=== PATIENT | female | born 1950 | race Asian ===

== ENCOUNTER 2018-11-30 14:59 | Emergency (ER) | payer OTHER ==
[~2018-11-30] VITALS: Ht 162.6 cm; Wt 124.3 kg
[2018-11-30 14:59] VITALS: BP_SYST 149
--- NOTE | 2018-11-30 15:00 | NUR ---
BROUGHT IN BY [facility], PLACED IN BED #4 AND TRIAGED. REPORT GIVEN TO KATHY
--- NOTE | 2018-11-30 15:15 | NUR ---
Patient presented to ER with C/O chest pain with SOB, resolved by arrival to ER. atient A&Ox4, afebrile, denies N/V/D, denies pain at present time. Patient brought to ER by BLS from [facility], given x1 nitro en route. Patient has Hx brain injury, HTN, GERD, Hyperlipidemia
[2018-11-30 15:51] LABS: BASOPHILS # (AUTO) 0.1 K/uL (0.0-0.2); BASOPHILS % (AUTO) 0.7 % (0.0-2.0); EOSINOPHILS # (AUTO) 0.3 K/uL (0.0-0.4); EOSINOPHILS % (AUTO) 3.2 % (0.0-4.0); HEMATOCRIT 43.9 % (36-48); HEMOGLOBIN 14.2 g/dL (12.0-16.0); LYMPHOCYTES # (AUTO) 1.4 K/uL (1.0-5.5); LYMPHOCYTES % (AUTO) 14.3 % (20.5-51.5); MEAN CORPUSCULAR HEMOGLOBIN 29 pg (27-31); MEAN CORPUSCULAR HGB CONC 32 % (32-36); MEAN CORPUSCULAR VOLUME 88 fL (79.0-98.0); MONOCYTES # (AUTO) 0.9 K/uL (0.0-1.0); MONOCYTES % (AUTO) 9.6 % (1.7-9.3); NEUTROPHILS # (AUTO) 7.2 K/uL (1.8-7.7); NEUTROPHILS % (AUTO) 72.2 % (40.0-70.0); PLATELET COUNT (AUTO) 302 K/uL (130-430); RED BLOOD CELL COUNT(AUTO) 4.99 MIL/uL (4.2-6.2); RED CELL DISTRIBUTION WIDTH 14.4 % (9.0-15.0); WHITE BLOOD COUNT (AUTO) 9.9 K/uL (4.8-10.8)
[2018-11-30 16:03] LABS: CREATININE 0.7 mg/dL (0.55-1.30); POTASSIUM 3.8 mmol/L (3.5-5.1)
[2018-11-30 16:15] LABS: ALBUMIN 3.2 g/dL (3.4-4.8); TOTAL BILIRUBIN 0.2 mg/dL (0.0-1.0)
--- NOTE | 2018-11-30 18:27 | NUR ---
ER Dr. Metcalf at bedside examining patient.
--- NOTE | 2018-11-30 19:12 | NUR ---
Report to Edwardo FRANKS
[2018-11-30 19:20] VITALS: BP_SYST 149
--- NOTE | 2018-11-30 19:20 | NUR ---
Patient given written and verbal discharge instructions and verbalizes understanding. ER MD Dr. Metcalf discussed with patient the results and treatment provided. Patient in stable condition. ID arm band removed. IV catheter removed intact and dressing applied, no active bleeding. Patient educated on pain management and to follow up with PMD in 4-5 days. Pain Scale 0/10. Opportunity for questions provided and answered. Medication side effect fact sheet provided. 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
== END 2018-11-30 19:20 | disposition home or self-care (01) ==
LOC: SED 14:59
DX: R07.9 Chest pain, unspecified (principal); Z86.79 Personal history of other diseases of the circulatory system
CPT/HCPCS: 36415; 71045; 80053; 82550-TC; 84484; 85025; 99284